=== PATIENT | male | born 1980 | race Caucasian/White ===

== ENCOUNTER 2024-04-08 20:20 | Emergency (ER) | payer OTHER, SELFPAY ==
[2024-04-08 20:26] VITALS: BP 145/79
[2024-04-08 20:44] LABS: % Basophils 0.6 % (0-2); % Eosinophils 6.9 % (0-6); % Immature Granulocytes 0.2 % (0-0.5); % Lymphocytes 40.4 % (20.5-51.1); % Neutrophils 42.9 % (42.2-75.2); Absolute Eosinophils 0.5 10^3/uL (0-0.7); Absolute Lymphocytes 2.6 10^3/uL (1.2-3.4); Absolute Monocytes 0.6 10^3/uL (0.1-0.6); Absolute Neutrophils 2.8 10^3/uL (1.4-6.5); Hematocrit 46.7 % (39.0-52.0); Hemoglobin 16.1 g/dL (13.0-18.0); Mean Corp Hgb Conc. 34.5 g/dL (33.0-37.0); Mean Corpuscular Hgb 29.2 pg (27.0-31.0); Mean Corpuscular Volume 84.8 fL (80.0-94.0); Mean Platelet Volume 9.8 fL (7.4-10.4); Nucleated Red Blood Cells % 0 % (-); Platelet Count 231 10^3/uL (130-400); Red Blood Cell Count 5.51 10^6/uL (4.70-6.10); Red Cell Dist. Width 13.2 % (11.5-14.5); White Blood Cell Count 6.5 10^3/uL (4.8-10.8)
[2024-04-08 21:14] LABS: ALT (SGPT) 27 U/L (0-50); AST (SGOT) 29 U/L (17-59); Alkaline Phosphatase 82 U/L (38-126); Blood Urea Nitrogen 12 mg/dl (9-20); Calcium 9.8 mg/dl (8.4-10.2); Carbon Dioxide 23 mmol/L (22-30); Glucose 85 mg/dl (70-99); Lipase 69 U/L (23-300); Total Bilirubin 0.5 mg/dl (0.2-1.3); Total Protein 7.8 g/dl (6.3-8.2); eGFR > 60.00
[2024-04-08 21:42] LABS: Chloride 101 mmol/L (98-107); Potassium 4.5 mmol/L (3.5-5.1); Sodium 135 mmol/L (135-145)
[2024-04-08 23:11] VITALS: BMI 26.6
[2024-04-08 23:17] VITALS: BP 119/98
[2024-04-08] MEDS: OMNIPAQUE 50 ML PO (23:23)
[2024-04-08] MEDS: NSS 500 IV (23:33)
[2024-04-09] VITALS: BP 118/83
[2024-04-09 01:00] VITALS: BP 118/77
--- NOTE | 2024-04-09 01:21 | ED.GENMED ---
History of Present Illness
General
Chief Complaint: Abdominal Pain
Source: patient
Exam Limitations: none
Time Seen by Provider: 04/08/24 22:57
History of Present Illness
History of Present Illness:
43-year-old male complaining of constipation lower abdominal pain. Some bloating sensation. Symptoms have been going on for 3 to 4 days. No vomiting no fever some anorexia.
Past History
Past History
ED Past Medical History: HTN and Psychiatric
ED Past Surgical History: Orthopedic and Other (Hernia repair)
Social History
Tobacco: Smoker
Drug: Marijuana and Narcotics
Personal: Single
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
Review of Systems
Review of Systems
All Other Systems: Not applicable
Constitutional: Denies fever
Respiratory: Reports no symptoms
Cardiac: Reports no symptoms
: Reports no symptoms
Phy Exam
Physical Exam
Physical Exam:
GENERAL: Alert and oriented in no apparent distress
EYE: Orbits normal.
NECK: Supple, no significant adenopathy.
ENT: Pharynx without erythema
CARDIAC: Regular rate and rhythm without any obvious murmurs.
LUNGS: Clear breath sounds,normal
ABDOMEN: Soft, bowel sounds present. Mild left lower quadrant tenderness. No rebound or guarding no mass or hernia
NEUROLOGICAL: Alert and oriented , grossly non-focal
SKIN: Warm and dry, no rash or lesion, no discoloration, skin intact.
MUSCULOSKELETAL: No edema,no deformity.Good color
PSYCH: Normal and appropriate interaction.
Course
Orders/Labs/Results
Orders:
Orders
04/08/24 20:37
Complete Blood Count/With Diff Urgent
Comprehensive Metabolic Panel Urgent
Lipase Urgent
04/08/24 23:16
IV Insert/Care/Rem.- Treatment PRN
0.9% Sodium Chloride 500 ml [Nss] 500 ml IV BOLUS
Iohexol [Omnipaque] See Protocol PO NOW STA
04/09/24 01:20
CT Abd/pel W Iv And Oral Contr Urgent
Reason For Exam: Lower abdominal pain/bloating
04/09/24 02:46
Docusate Sodium [Colace] 100 mg PO NOW STA
Abnormal Lab Results
04/08/24
20:37
Eosinophils % 6.9 H %
(0-6)
04/08/24 20:37
04/08/24 20:37
Vital Signs
Initial and Last Documented VS:
Initial Vital Signs
Temp Pulse Resp BP Pulse Ox
97.9 F 69 18 145/79 96
04/08/24 20:26 04/08/24 20:26 04/08/24 20:26 04/08/24 20:26 04/08/24 20:26
Last Documented Vital Signs
Temp Pulse Resp BP Pulse Ox
97.9 F 58 18 117/90 97
04/08/24 20:26 04/09/24 03:00 04/09/24 03:00 04/09/24 03:00 04/09/24 02:45
MDM/Problems Addressed
Differential Diagnosis Includes:
Patient with vague abdominal discomfort mostly left lower quadrant and constipation. Differential would include diverticulitis constipation colitis workup in progress
*Radiology
Radiology exam reviewed: radiology read reviewed (Mildly prominent loops of small bowel. Moderate stool burden)
*Pulse Oximetry
Patient hypoxic: no
*Critical Care Note
Total Time (30-74mins, 75-104mins- exclusive of procedures): Not Applicable
Update Note
Update Note:
Lengthy discussion with the patient and . Nothing serious found by CT scan or testing. Nonsurgical abdomen clinically. Patient frustrated as to not having a definitive answer. I did offer admission however patient is comfortable with
outpatient follow-up. I did leave a 8 text with GI office to hopefully arrange close follow-up. Patient was asking for intermittent pain medications if needed. Very reluctantly giving him a small dose of Ultram. I stressed I would like him to
avoid using it as it can add to his constipation. He was also instructed to return immediately with increased pain vomiting fever or any other concerning symptom
ED Attending Note
-
Portions of this chart may have been created with voice recognition software.� Occasional wrong word or��sound alike� substitutions may have occurred due to the inherent limitations of voice recognition software.
Discharge Plan
Departure
Patient Disposition: Home (Routine Discharge)
Date of Disposition: 04/09/24
Time of Disposition: 02:38
Patient with high blood pressure during this ER visit?: No
Discharge Problem:
Abdominal pain/bloating, Constipation
Instructions: Constipation, Adult (DC), Abdominal Pain
Prescriptions:
New
tramadol 50 mg tablet
25 mg PO Q6H PRN (Reason: Pain) Qty: 10 0RF
Referrals:
Kristy Patel PA-C [Family Provider] -
Emily Muñoz MD [Active] - Next open appointment
Activity Restrictions/Additional Instructions:
The prescription was sent to your pharmacy. Please try to avoid using it as this can add to your constipation. However you can give it a try with transient increased pain
However if pain is increasing persists, fever, vomiting, you should return to the ER for reevaluation
Stay well-hydrated light diet
Try MiraLAX and add Colace if needed
Call the GI group in the morning. I did leave a message with their front end technician
Interventions
Interventions:
*Risk Screen - Suicide Last Done: 04/08/24 20:26
*General Assessment Last Done: 04/08/24 20:26
*Neglect/Abuse Screening Last Done: 04/08/24 20:26
ED- Fall Risk Assessment Last Done: 04/08/24 23:03
*ED COVID-19 Vaccine History Last Done: 04/08/24 20:26
*Nursing Disposition Last Done: 04/09/24 03:00
NA-Busovq-Jkazsbfdxa Assessment Last Done: 04/08/24 23:03
Discharge Date and Time
Discharge Date/Time: 04/09/24 03:00
Print Language: LIBYAN
[2024-04-09 01:32] VITALS: BP 121/79
[2024-04-09 02:00] VITALS: BP 116/79
[2024-04-09] MEDS: COLACE 100 MG PO (02:54)
[2024-04-09 03:00] VITALS: BP 117/90
== END 2024-04-09 03:00 | disposition home or self-care (01) ==
LOC: EMR 20:20
PROVIDERS: EMERGENCY PHYSICIAN Emergency Medicine; FAMILY PHYSICIAN Physician Assistant Medical
DX: K59.00 Constipation, unspecified (principal); I10 Essential (primary) hypertension; F17.200 Nicotine dependence, unspecified, uncomplicated
CPT/HCPCS: 96360; 96361; 99284; 74177; 80053; 83690; 85025; Q9967